=== PATIENT | female | born 1975 | race Hispanic/Latino ===

== ENCOUNTER 2019-07-01 11:14 | Outpatient (CLI) | payer OTHER ==
--- NOTE | 2019-07-01 11:28 | RAD ---
EXAM: Chest 2 views: HISTORY: Cough and wheezing COMPARISON: None. FINDINGS: There is a normal-sized cardiomediastinal silhouette. There is no evidence of consolidation, mass, or pleural effusion. The bones are unremarkable. IMPRESSION: No evidence of acute cardiopulmonary disease
== END 2019-07-01 11:15 | disposition home or self-care (01) ==
LOC: MADRAD 11:14
PROVIDERS: ATTEND Nurse Practitioner Family
DX: R06.2 Wheezing (principal); R05 Cough
CPT/HCPCS: 71046